=== PATIENT | male | born 1955 | race Caucasian/White ===

== ENCOUNTER 2019-05-04 08:12 | Day surgery (SDC) | payer OTHER ==
[2019-05-03 11:59] VITALS: BMI 24.3
[2019-05-04 14:55] VITALS: BP 124/72; PULSE 72; TEMP 98.1
--- NOTE | 2019-05-09 16:38 | PATH ---
Surgical Pathology Report Patient Name: NICK MCKINNEY [facility]. Rec. #: [id number] /Age/Gender: 1955 (Age: 64) / M Account: [id number] Location: RADIOLOGY INTER Taken: 05/04/2019 Received: 05/04/2019 Reported: 05/09/2019 Physicians: Gabino Panda M.D. Ezra Leal M.D. Brayan Jacome M.D. Specimen(s) Received RIGHT LUNG BIOPSY Clinical History 64-year-old male with large right lung mass Final Diagnosis LUNG, RIGHT, CT GUIDED CORE BIOPSY: POORLY DIFFERENTIATED SQUAMOUS CELL CARCINOMA. SEE COMMENT. Comment: Immunohistochemical stains performed at [place], [place] ([id number]) and interpreted at [facility] show the tumor is positive for CK7 and p40, while negative for TTF-1 and Napsin A. History of large lung mass noted. Overall findings are compatible with lung origin, if other metastatic sites can be clinically excluded. Suggest clinical and radiologic correlation. Findings discussed with Dr. Leal. PDL-1 pending, findings will be reported separately. Positive and negative controls (internal if applicable) show appropriate results. Electronically Signed Andressa Cruz M.D. Gross Description Received in formalin labeled "right lung biopsy," is a 1.0 x 0.5 x 0.1 cm aggregate of aguirre, irregular to cylindrical soft tissue fragments. The formalin is filtered and the specimen is entirely submitted in one cassette. /05/04/2019 saudi05/04/2019
== END 2019-05-04 15:00 | disposition home or self-care (01) ==
LOC: JRADIR 08:12
PROVIDERS: ATTEND Internal Medicine Pulmonary Disease
PROC: 0BBC3ZX Excision of Right Upper Lung Lobe, Percutaneous Approach, Diagnostic (ICD-10-PCS; principal; 2019-05-04)
DX: C34.11 Malignant neoplasm of upper lobe, right bronchus or lung (principal)
CPT/HCPCS: 32405; 71045-TC-FY; 77012-TC; 88305-TC